=== PATIENT | male | born 1965 | race African-American/Black ===

== ENCOUNTER 2019-05-21 06:58 | Outpatient (CLI) | payer MEDICARE, MEDICAID, SELFPAY ==
--- NOTE | ~2019-05-21 | MR_ITS ---
EXAMINATION: MR cervical spine wo con EXAM DATE: 05/21/2019 07:51 INDICATION: Cervical radiculopathy. TECHNIQUE: Multi-sequential, multiplanar MR images of the cervical spine were obtained without contra st. Axial T2, axial T2 MERGE sequence. Sagittal T1, T2, T2 fat saturation images also obtained. Sag ittal T1, T2 fat saturation sequences limited from patient motion. Correlation is made to CT cervical spine 04/10/2019. FINDINGS: There is moderate disc disease from C4-C7, mild at C3-4 and C7-T1. The vertebral bodies ar e aligned in the AP dimension. The spinal cord signal intensity and intrinsic morphology is normal. C ervicomedullary junction is normal in appearance. Paraspinal soft tissue is unremarkable. Level by level evaluation: C2-C3: Disc does not extend beyond the endplate margin. Uncovertebral joint arthropathy: None. Facet joint arthropathy: Mild right. Neural foraminal stenosis: No stenosis. Central canal stenosis: No stenosis. C3-C4: There is a mild diffuse disc bulge. Uncovertebral joint arthropathy: Mild bilateral. Facet joint arthropathy: Mild bilateral. Neural foraminal stenosis: Mild to moderate left, mild right. Central canal stenosis: Mild. C4-C5: There is a mild diffuse disc bulge. Uncovertebral joint arthropathy: Moderate left, mild to moderate right. Facet joint arthropathy: Mild to moderate. Neural foraminal stenosis: Severe left, moderate to severe right. Central canal stenosis: Mild. C5-C6: There is a mild diffuse disc bulge. Uncovertebral joint arthropathy: Mild to moderate left, mild right. Facet joint arthropathy: Mild bilateral. Neural foraminal stenosis: Moderate left, mild to moderate right. Central canal stenosis: Mild. C6-C7: There is a mild diffuse disc bulge. Uncovertebral joint arthropathy: Moderate right, mild to moderate left. Facet joint arthropathy: Mild bilateral. Neural foraminal stenosis: Severe left, moderate to severe right. Central canal stenosis: Mild. C7-T1: There is a mild diffuse disc bulge. Uncovertebral joint arthropathy: Mild to moderate left, mild right. Facet joint arthropathy: Mild bilateral. Neural foraminal stenosis: Mild left. Central canal stenosis: Mild. IMPRESSION: 1. Significant mid cervical neural foraminal stenosis. Reviewed, dictated and finalized at location A. URE BOOKER
== END 2019-05-21 06:59 | disposition home or self-care (01) ==
DX: M54.12 Radiculopathy, cervical region (principal); M48.02 Spinal stenosis, cervical region
CPT/HCPCS: 72141

== ENCOUNTER 2019-09-11 15:25 | Emergency (ER) | payer MEDICARE, MEDICAID, SELFPAY ==
--- NOTE | ~2019-09-11 | XR_ITS ---
EXAMINATION: XR wrist LT min 3V DATE: 09/11/2019 17:16 INDICATION: Left wrist pain. TECHNIQUE: 4 views of left wrist were obtained. COMPARISON: None. FINDINGS: Bone alignment is normal. No fracture. There is mild osteoarthritis of triscaphe joint and first carpometacarpal joint. IMPRESSION: 1. Mild polyarticular osteoarthritis. Reviewed, dictated and finalized at location E.
[2019-09-11 15:36] VITALS: BP 143/85; PULSE 98; RESP 18; TEMP 37.4; O2SAT 98
--- NOTE | 2019-09-11 16:13 | ED.GENADULT ---
HPI - General Adult General Chief complaint: Unspecified Stated complaint: L FOOT, L SHOULDER PAIN Time Seen by Provider: 09/11/19 15:26 Source: patient Mode of arrival: ambulatory Limitations: no limitations History of Present Illness HPI narrative: Patient is a 54-year-old male who presents to emergency department for evaluation of left wrist pain that began today after picking up an object noticed an aching pain on the radial aspect of the wrist worse with activity and movement patient also notes he has had increasing left lateral neck pain noting that he has a history of chronic neck pain for which she sees a specialist had injections in the left neck a month ago and is now having more tingling and pain. Patient notes he is currently not taken anything for his symptoms Related Data Allergies Allergy/AdvReac Type Severity Reaction Status Date / Time No Known Allergies Allergy Unverified 04/10/19 16:50 Review of Systems Review of Systems: All systems reviewed & are unremarkable except as noted in HPI and below PMFSH Social History Social History Gender identity (if verbalized by the patient): Male Exam Narrative: Exam Narrative: GENERAL: Well-appearing, well-nourished, and in no acute distress. HEAD: Normocephalic, atraumatic. EYES: PERRLA and EOMI. ENT: Nares clear, no rhinorrhea or epistaxis. Mucous membranes moist. Oropharynx without tonsillar hypertrophy exudate or other lesions. NECK: Supple. No adenopathy or masses. CHEST: Clear to auscultation. No respiratory distress. No wheezes rales or rhonchi HEART: Regular rate and rhythm. No murmur heard. Normal peripheral pulses. EXTREMITIES: Normal range of motion. No edema. Tenderness of the left paraspinal cervical musculature and trapezius musculature no deformities noted. Tenderness of the radial aspect of the left wrist joint with no deformity noted SKIN: Warm, dry, no rash. NEURO: No focal deficits. Alert and oriented x3. Neurovascularly intact. Capillary refill less than 2 seconds PSYCH: Normal mood and affect. Course Course Emergency Course: Patient in the room in no distress aware of case findings treatment plan and diagnosis Vital Signs Vital signs: Vital Signs Temperature 99.4 F 09/11/19 15:36 Pulse Rate 98 09/11/19 15:36 Respiratory Rate 18 09/11/19 15:36 Blood Pressure 143/85 H 09/11/19 15:36 Pulse Oximetry 98 09/11/19 15:36 Temperature 99.4 F 09/11/19 15:36 Pulse Rate 98 09/11/19 15:36 Respiratory Rate 18 09/11/19 15:36 Blood Pressure 143/85 H 09/11/19 15:36 Pulse Oximetry 98 09/11/19 15:36 Medical Decision Making MDM Narrative Medical decision making narrative: Patients injury or pain is consistent with musculoskeletal etiology. No signs of neurological or vascular compromise on exam. Compartments and tisues are soft without signs of compartment syndrome. Pain is felt appropriate for further evaluation on an outpatient basis. Vital Signs Vital Signs: Vital Signs Temperature 99.4 F 09/11/19 15:36 Pulse Rate 98 09/11/19 15:36 Respiratory Rate 18 09/11/19 15:36 Blood Pressure 143/85 H 09/11/19 15:36 Pulse Oximetry 98 09/11/19 15:36 Temperature 99.4 F 09/11/19 15:36 Pulse Rate 98 09/11/19 15:36 Respiratory Rate 18 09/11/19 15:36 Blood Pressure 143/85 H 09/11/19 15:36 Pulse Oximetry 98 09/11/19 15:36 Imaging Data Radiologist's impression: ITS Impressions Wrist X-Ray 09/11/19 17:19 IMPRESSION: 1. Mild polyarticular osteoarthritis. Discharge Plan Discharge Clinical Impression: Cervical radiculopathy, Acute pain of left wrist Patient Disposition: Home, Self-Care Condition: Stable Instructions: Antibiotic Form, Cervical Radiculopathy (ED) Additional Instructions: Follow up with your primary care doctor in 5-7 days for re-evaluation. Go to ER for worsening pain, vision changes,
== END 2019-09-11 17:59 | disposition home or self-care (01) ==
PROVIDERS: Emergency Provider Emergency Medicine
DX: M54.12 Radiculopathy, cervical region (principal); M25.532 Pain in left wrist; M19.032 Primary osteoarthritis, left wrist
CPT/HCPCS: 73110; 99283

== ENCOUNTER 2020-01-14 10:41 | Emergency (ER) | payer MEDICARE, MEDICAID, SELFPAY ==
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
[2020-01-14 10:51] VITALS: PULSE 95; RESP 18; TEMP 36.2; O2SAT 100
[2020-01-14 11:51] VITALS: BP 126/74; PULSE 81; RESP 18; TEMP 36.7; O2SAT 99
== END 2020-01-14 11:52 | disposition home or self-care (01) ==
PROVIDERS: Emergency Provider Nurse Practitioner
DX: S20.469A Insect bite (nonvenomous) of unspecified back wall of thorax, initial encounter (principal); W57.XXXA Bitten or stung by nonvenomous insect and other nonvenomous arthropods, initial encounter; M19.90 Unspecified osteoarthritis, unspecified site; K21.9 Gastro-esophageal reflux disease without esophagitis
CPT/HCPCS: 99281

== ENCOUNTER 2022-05-01 14:31 | Emergency (ER) | payer MEDICARE, MEDICAID, SELFPAY ==
[2022-05-01 14:47] VITALS: BP 115/58; PULSE 109; RESP 20; TEMP 37.8; O2SAT 100
[2022-05-01 15:29] LABS: Basophils Percent Auto 0.2 % (0.2-1.2); Eosinophils Percent Auto 0.5 % (0-4.4); Hemoglobin 10.2 g/dL (14.0-18.0); Immature Granulocyte Absolute 0.03 K/mm3 (0.00-0.031); Immature Granulocyte Percent A 0.4 % (0-0.5); Lymphocytes Absolute Auto 0.98 K/mm3 (0.9-3.2); Lymphocytes Percent Auto 11.8 % (18.3-44.2); Mean Corpuscular Hemoglobin 29.1 pg (26-34); Mean Corpuscular Volume 85.5 fl (80-100); Mean Platelet Volume 10.4 fl (7.4-10.4); Monocytes Absolute Auto 0.9 K/mm3 (0.1-0.6); Monocytes Percent Auto 10.2 % (2.6-8.5); Neutrophils Absolute Auto 6.4 K/mm3 (1.3-6.7); Neutrophils Percent Auto 76.9 % (45.5-73.1); Platelet Count Result 196 k/mm3 (150-375); Red Blood Count 3.51 M/mm3 (4.6-6.20); Red Cell Distribution Width 14.4 % (11.5-14.5); White Blood Count 8.3 K/mm3 (4.5-10.0)
[2022-05-01 15:56] LABS: Alanine Aminotransferase 48 U/L (6-50); Albumin Level 3.9 g/dL (3.5-5.1); Alkaline Phosphatase 115 U/L (38-126); Anion Gap 8 mmol/L (8-16); Aspartate Amino Transferase 50 U/L (17-59); Bilirubin,Total 0.7 mg/dL (0.2-1.3); Blood Urea Nitrogen 48 mg/dL (9-20); Calcium 8.4 mg/dL (8.4-10.2); Carbon Dioxide 25 mmol/L (22-30); Chloride 94 mmol/L (98-107); Estimated CRCL calculation 51 ml/min; Estimated Glomerular Filt Rate 54; Glucose 232 mg/dL (65-110); Lipase 40 U/L (23-300); Potassium 4.4 mmol/L (3.4-5.0); Sodium 127 mmol/L (137-145)
[2022-05-01 16:09] LABS: Appearance Urine Slightly Cloudy (Clear); Bilirubin Urine Negative (Negative); Blood Urine 1+ (Negative); Color Urine Yellow (Yellow); Glucose Urine UA Negative (Negative); Ketones Urine Negative (Negative); Leukocyte Esterase Ur Negative LEU/UL (Negative); Nitrate Urine Negative (Negative); Protein Urine 1+ mg/dL (Negative); Specific Grav Ur 1.015 (1.001-1.035); Urobilinogen Urine 0.2 mg/dL (<2.0); pH Urine 5.5 (5.0-9.0)
[2022-05-01 16:15] LABS: Add Urine Microscopic? YES; RBC Urine 0-2 /hpf (0-2); Squamous Epithelial Cell Urine Rare /hpf (Few); WBC Urine 0-3 /hpf
[2022-05-01 16:19] LABS: Influenza A QL RT-PCR Negative (Negative); Influenza B QL RT-PCR Negative (Negative); RSV RNA, RT-PCR Negative (Negative); SARS-CoV-2 RNA PCR Negative
[2022-05-01] MEDS: SODIUM CHLORIDE 0.9% IV 1,000 ML 999 ML IV CONT (16:50)
[2022-05-01] MEDS: CLINDAMYCIN 600 MG/D5W 50 ML 600 MG/50 ML PIGGYBACK 100 MG IVPB (16:52)
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
--- NOTE | 2022-05-01 16:58 | PC.NURSE ---
blood glucose was 107 at this time
[2022-05-01 16:59] LABS: Glucose Point of Care 107 mg/dl (65-105)
== END 2022-05-01 18:38 | disposition home or self-care (01) ==
PROVIDERS: Emergency Provider Emergency Medicine
DX: L03.116 Cellulitis of left lower limb (principal); Z20.822 Contact with and (suspected) exposure to COVID-19; E11.9 Type 2 diabetes mellitus without complications; K21.9 Gastro-esophageal reflux disease without esophagitis; M19.90 Unspecified osteoarthritis, unspecified site
CPT/HCPCS: 36415; 80053; 81001; 82948; 83690; 85025; 87040; 87637; 96365; 99284; J7030

== ENCOUNTER 2022-05-02 07:17 | Outpatient (CLI) | payer MEDICARE, MEDICAID, SELFPAY ==
--- NOTE | ~2022-05-02 | US_ITS ---
EXAMINATION:US venous doppler LE LT INDICATION:Hamstring pain. TECHNIQUE: Multiple grayscale, color flow and Doppler images of the left lower extremity deep venous systems were obtained and reviewed. COMPARISON:No prior studies for comparison. FINDINGS: The common femoral, superficial femoral and popliteal veins demonstrate normal respiratory variation, augmentation and compressibility. Color flow is also seen within the posterior tibial, pe roneal, greater saphenous and profunda veins. IMPRESSION: 1: No lower extremity deep venous thrombosis. Reviewed, dictated and finalized at location A. PL[employer]
== END 2022-05-02 07:18 | disposition home or self-care (01) ==
PROVIDERS: Visit Provider Emergency Medicine
DX: R22.42 Localized swelling, mass and lump, left lower limb (principal)
CPT/HCPCS: 93971